=== PATIENT | male | born 1965 | race Caucasian/White ===

== ENCOUNTER 2016-09-23 11:05 | Emergency (ER) | payer SELFPAY ==
[~2016-09-23] VITALS: Ht 157.5 cm; Wt 79.0 kg
[2016-09-23 12:54] VITALS: BP 121/79
== END 2016-09-23 13:25 | disposition home or self-care (01) ==
LOC: ER 11:06
DX: L29.9 Pruritus, unspecified (principal); R20.2 Paresthesia of skin; F15.10 Other stimulant abuse, uncomplicated; F10.10 Alcohol abuse, uncomplicated; Y90.9 Presence of alcohol in blood, level not specified
CPT/HCPCS: 99283

== ENCOUNTER 2023-03-04 19:25 | Emergency (ER) | payer SELFPAY ==
[~2023-03-04] VITALS: Ht 167.6 cm; Wt 64.0 kg
[2023-03-04 19:43] VITALS: BP 142/79; PULSE 96; RESP 16; TEMP 98.4; O2SAT 99
== END 2023-03-04 23:54 | disposition home or self-care (01) ==
LOC: ER 19:25
DX: F10.129 Alcohol abuse with intoxication, unspecified (principal); Y90.9 Presence of alcohol in blood, level not specified
CPT/HCPCS: 99283

== ENCOUNTER 2023-11-02 13:22 | Emergency (ER) | payer SELFPAY ==
[~2023-11-02] VITALS: Ht 162.6 cm; Wt 70.0 kg
[2023-11-02 13:23] VITALS: O2SAT 96
[2023-11-02] MEDS: SODIUM CHLORIDE 0.9% 1,000 ML IV ONE (14:09)
[2023-11-02] MEDS: LORAZEPAM 2MG/ML INJ IV ONE (14:15)
[2023-11-02 15:58] LABS: BASOPHILS % 1.1 % (0.0-2.0); DIFFERENTIAL COMMENT 0; EOSINOPHILS % 0.8 % (0.0-5.0); HEMATOCRIT. 37.4 % (42.0-52.0); HEMOGLOBIN. 12.7 g/dL (14.0-18.0); LYMPHOCYTES % 47.4 % (20.0-50.0); MEAN CORPUSCULAR HEMOGLOBIN 34.1 pg (28.0-32.0); MEAN CORPUSCULAR VOLUME 100.4 fL (80.0-94.0); MEAN PLATELET VOLUME 8.5 fl (7.4-10.4); MONOCYTES % 6.5 % (2.0-8.0); NEUTROPHILS % 44.2 % (40.0-76.0); PLATELET 232 x1000/uL (130-400); RED BLOOD CELL COUNT 3.73 mill/uL (4.7-6.1); RED CELL DISTRIBUTION WIDTH 16.5 % (11.6-14.6); WHITE BLOOD COUNT 8.8 x1000/uL (4.5-11.0)
[2023-11-02] MEDS: LORAZEPAM 2MG/ML INJ IM ONE (15:58)
[2023-11-02 16:03] LABS: CHLORIDE 113 mEq/L (98-107); POTASSIUM 3.9 mEq/L (3.5-5.1); SODIUM 146 mEq/L (136-145)
[2023-11-02 16:04] LABS: CARBON DIOXIDE 24 mEq/L (21-32)
[2023-11-02 16:05] LABS: CALCIUM 8.8 mg/dL (8.7-10.4)
[2023-11-02 16:09] LABS: CREATININE 0.7 mg/dL (0.6-1.3); GLUCOSE 95 mg/dL (70-105); UREA NITROGEN BLOOD 6 mg/dL (9-23)
[2023-11-02 16:10] LABS: ETHANOL BLOOD 254 mg/dL (<10)
[2023-11-02] MEDS: HALOPERIDOL LACTATE 5MG/ML VIAL IM ONE (16:12)
[2023-11-02 23:00] VITALS: BP 122/73; PULSE 70; RESP 16; TEMP 98.7
== END 2023-11-02 23:01 | disposition home or self-care (01) ==
LOC: ER 13:25
DX: F10.129 Alcohol abuse with intoxication, unspecified (principal); R41.82 Altered mental status, unspecified; E87.0 Hyperosmolality and hypernatremia; Y90.8 Blood alcohol level of 240 mg/100 ml or more
CPT/HCPCS: 80048; 80320; 85025; 36415; 71045; 70450; 96361; 96372; 96374; 99285; J1630; J2060; J7030; Z7610 ×3; G0480

== ENCOUNTER 2024-05-20 11:49 | Emergency (ER) | payer SELFPAY ==
[~2024-05-20] VITALS: Ht 170.2 cm; Wt 70.0 kg
[2024-05-20 11:52] VITALS: BP 124/86; PULSE 62; RESP 16; TEMP 36.7; O2SAT 99
== END 2024-05-20 15:18 | disposition left against medical advice (07) ==
LOC: ER 12:14
DX: F10.129 Alcohol abuse with intoxication, unspecified (principal); Y90.9 Presence of alcohol in blood, level not specified
CPT/HCPCS: 99281